=== PATIENT | male | born 1975 | race Caucasian/White ===

== ENCOUNTER 2020-11-05 22:40 | Emergency (ER) | payer BC ==
[~2020-11-05] VITALS: Ht 193 cm; Wt 106.0 kg
[2020-11-05 23:12] VITALS: BP 101/63
[2020-11-06] MEDS ORDERED: ALBU8HFA PO (00:03)
[2020-11-06] MEDS ORDERED: ONDA4TAB12 PO (00:03)
[2020-11-06] MEDS ORDERED: ondansetron 4mg rapidly disintigrating tab PO ONE (00:05)
== END 2020-11-06 00:54 | disposition home or self-care (01) ==
LOC: ER 22:42
DX: U07.1 COVID-19 (principal); R11.0 Nausea; R53.83 Other fatigue; R05 Cough; R50.9 Fever, unspecified; R63.0 Anorexia; Z79.899 Other long term (current) drug therapy
CPT/HCPCS: 99283

== ENCOUNTER 2020-11-11 14:35 | Inpatient (IN) | payer BC ==
[~2020-11-11] VITALS: Ht 193 cm; Wt 106.8 kg
[~2020-11-11 14:35] MED LIST: ALBU8HFA PO; ONDA4TAB12 PO
[2020-11-11 15:23] LABS: BASOPHILS # (AUTO) 0.1 X10'3 (0-0.2); BASOPHILS % (AUTO) 0.6 % (0-1); EOSINOPHILS # (AUTO) 0.2 X10'3 (0-0.9); EOSINOPHILS % (AUTO) 1.9 % (0-6); HEMATOCRIT 48.9 % (42.0-52.0); HEMOGLOBIN 16.7 g/dl (14.0-17.9); LYMPHOCYTES # (AUTO) 0.9 X10'3 (1.1-4.8); MEAN CORPUSCULAR HEMOGLOBIN 32.5 PG (27.0-31.0); MEAN CORPUSCULAR HGB CONC 34.1 g/dL (33.0-36.5); MEAN CORPUSCULAR VOLUME 95.4 FL (78-98); MEAN PLATELET VOLUME 8.3 FL (7.4-10.4); MONOCYTES # (AUTO) 0.6 X10'3 (0-0.9); MONOCYTES % (AUTO) 6.8 % (2-12); NEUTROPHILS # (AUTO) 6.9 X10'3 (1.8-7.7); NEUTROPHILS % (AUTO) 80.7 % (42-75); PLATELET COUNT 236 X10'3 (140-440); RED BLOOD COUNT 5.12 X10'6 (4.70-6.10); RED CELL DISTRIBUTION WIDTH 13.2 % (11.5-14.5); WHITE BLOOD COUNT 8.6 X10'3 (4.5-11.0)
[2020-11-11 15:38] LABS: ALANINE AMINOTRANSFERASE 59 U/L (12-78); ALBUMIN 2.6 G/DL (3.4-5.0); ALBUMIN/GLOBULIN RATIO 0.5 (1.1-1.5); ALKALINE PHOSPHATASE 82 IU/L (46-116); ANION GAP 11 (8-16); ASPARTATE AMINO TRANSFERASE 44 U/L (10-37); BILIRUBIN,TOTAL 0.6 MG/DL (0.1-1.0); BLOOD UREA NITROGEN 12 MG/DL (7-18); BUN/CREATININE RATIO 10.1 (5.4-32.0); C-REACTIVE PROTEIN 8.21 MG/DL (0.0-0.5); CALCIUM 8.5 MG/DL (8.5-10.1); CHLORIDE 98 MMOL/L (99-107); CREATININE 1.19 MG/DL (0.60-1.10); GLUCOSE 98 MG/DL (70-104); LACTATE DEHYDROGENASE 871 U/L (85-227); POTASSIUM 4.3 MMOL/L (3.5-5.1); SODIUM 138 MMOL/L (135-145); TOTAL CARBON DIOXIDE 29.1 MMOL/L (24-32); TOTAL PROTEIN 7.5 G/DL (6.4-8.2); eGFR 66 ML/MIN
[2020-11-11 15:51] LABS: D-DIMER > 35.20 MG/L FEU (0-0.50)
[2020-11-11] MEDS ORDERED: dexamethasone 4mg tablet PO ONE (16:35)
[2020-11-11] MEDS ORDERED: DEXAMETHASONE 6 MG TABLET PO ONE (16:40)
[2020-11-11] MEDS ORDERED: enoxaparin 100mg/ml syringe SUBCUT ONE (16:45)
[2020-11-11] MEDS ORDERED: iohexol 350MG/ML 100ml bottle IV ONE (17:01)
[2020-11-11] MEDS ORDERED: mag hydrox/Alum hydrox/simeth 30ml oral suspension PO PRN (17:25)
[2020-11-11] MEDS ORDERED: ondansetron/PF 4mg/2ml inj IV PRN (17:25)
[2020-11-11] MEDS ORDERED: magnesium hydroxide 30ml (MOM) UD suspension PO PRN (17:25)
[2020-11-11] MEDS ORDERED: BUPR-317 PO (17:41)
[2020-11-11] MEDS ORDERED: ONDA4TAB6 PO (17:41)
[2020-11-11] MEDS ORDERED: VALA100031 PO (17:41)
[2020-11-11] MEDS ORDERED: ALBU8.5H17 IH (17:41)
[2020-11-11] MEDS ORDERED: ALBUTEROL INHALER 1 PUFF/90 MCG INHALER IH PRN (17:55)
[2020-11-11] MEDS ORDERED: non-formulary drug (Ondansetron Hcl (Zofran) 1 TAB) PO PRN (17:55)
[2020-11-11] MEDS ORDERED: LIOT0.5P PO (17:59)
--- NOTE | 2020-11-11 18:35 | NUR ---
PT SITTING ON BED. INTERMITTENT DRY COUGH. SPEAKS IN FULL SENTENCES. A&0X4.
[2020-11-11] MEDS: dexamethasone inj 6 MG in normal saline 50ml IV soln 50 ML IV SCH (19:04)
[2020-11-11] MEDS: docusate sod 100mg capsule PO SCH (20:00)
[2020-11-11] MEDS: normal saline 1000ml 1,000 ML IV SCH (20:09)
[2020-11-11] MEDS: enoxaparin 100mg/ml syringe SQ SCH (20:11)
[2020-11-11] MEDS: acetaminophen 325mg tablet PO PRN (23:04)
[2020-11-12 02:58] LABS: BASOPHILS % (AUTO) 0.2 % (0-1); EOSINOPHILS % (AUTO) 0.1 % (0-6); HEMATOCRIT 45.2 % (42.0-52.0); LYMPHOCYTES # (AUTO) 0.5 X10'3 (1.1-4.8); LYMPHOCYTES % (AUTO) 10.6 % (21-51); MEAN CORPUSCULAR HGB CONC 33.1 g/dL (33.0-36.5); MEAN CORPUSCULAR VOLUME 96.7 FL (78-98); MEAN PLATELET VOLUME 8.2 FL (7.4-10.4); MONOCYTES # (AUTO) 0.2 X10'3 (0-0.9); MONOCYTES % (AUTO) 5.1 % (2-12); NEUTROPHILS # (AUTO) 3.6 X10'3 (1.8-7.7); PLATELET COUNT 234 X10'3 (140-440); RED BLOOD COUNT 4.67 X10'6 (4.70-6.10); RED CELL DISTRIBUTION WIDTH 13.2 % (11.5-14.5); WHITE BLOOD COUNT 4.3 X10'3 (4.5-11.0)
[2020-11-12 03:12] LABS: ANION GAP 9 (8-16); BLOOD UREA NITROGEN 13 MG/DL (7-18); CALCIUM 7.1 MG/DL (8.5-10.1); CHLORIDE 104 MMOL/L (99-107); CREATININE 0.93 MG/DL (0.60-1.10); GLUCOSE 128 MG/DL (70-104); POTASSIUM 4.9 MMOL/L (3.5-5.1); SODIUM 138 MMOL/L (135-145); TOTAL CARBON DIOXIDE 25.1 MMOL/L (24-32); eGFR 88 ML/MIN
[2020-11-12] MEDS: valacyclovir 500mg tablet PO SCH (07:35)
[2020-11-12] MEDS: docusate sod 100mg capsule PO SCH ×2 (07:35→18:16)
[2020-11-12] MEDS: buPROPion SR 150mg tablet PO SCH (07:35)
[2020-11-12] MEDS: acetaminophen 325mg tablet PO PRN ×3 (07:35→20:08)
[2020-11-12] MEDS: enoxaparin 100mg/ml syringe SQ SCH ×2 (07:36→20:08)
[2020-11-12] MEDS: dexamethasone inj 6 MG in normal saline 50ml IV soln 50 ML IV SCH ×2 (07:36→19:41)
[2020-11-12] MEDS ORDERED: REMDESIVIR INJ 200 MG in normal saline 100ml IV soln 60 ML IV ONE (09:55)
--- NOTE | 2020-11-12 14:05 | NUR ---
relieving RN for break, pt is resting quietly on gurney, resp even and unlabored, pt asking for tylenol for chronic back pain, refilled his water pitcher, gave him apple juice and orange juice, emptied urinal of 1000ml of dark yellow urine
[2020-11-12 21:55] VITALS: BP 138/68
--- NOTE | 2020-11-12 21:55 | NUR ---
PATIENT ADMITTED TO COVID ROOM 7B FROM ER FOR COVID + PE AND PNEUMONIA. PLACED COMFORTABLE IN BED. VITAL SIGNS TAKEN AND RECORDED.
[2020-11-13 04:00] VITALS: BP 113/79
[2020-11-13] MEDS: normal saline 1000ml 1,000 ML IV SCH (06:03)
[2020-11-13] MEDS: acetaminophen 325mg tablet PO PRN ×2 (06:12→19:24)
--- NOTE | 2020-11-13 06:30 | NUR ---
Problems reprioritized. Patient report given, questions answered & plan of care reviewed with AM RN.
[2020-11-13] MEDS: benzonatate 100mg capsule PO PRN ×2 (08:07→19:24)
[2020-11-13] MEDS: docusate sod 100mg capsule PO SCH ×2 (08:07→19:25)
[2020-11-13] MEDS: buPROPion SR 150mg tablet PO SCH (08:07)
[2020-11-13] MEDS: valacyclovir 500mg tablet PO SCH (08:07)
[2020-11-13] MEDS: REMDESIVIR INJ 100 MG in normal saline 100ml IV soln 80 ML IV SCH (08:08)
[2020-11-13] MEDS: dexamethasone inj 6 MG in normal saline 50ml IV soln 50 ML IV SCH ×2 (08:08→20:57)
[2020-11-13] MEDS: enoxaparin 100mg/ml syringe SQ SCH ×2 (08:09→19:24)
[2020-11-13 08:15] VITALS: BP 102/64
[2020-11-13 09:06] LABS: BASOPHILS % (AUTO) 0.3 % (0-1); EOSINOPHILS # (AUTO) 0.1 X10'3 (0-0.9); EOSINOPHILS % (AUTO) 0.9 % (0-6); HEMATOCRIT 47.4 % (42.0-52.0); HEMOGLOBIN 15.9 g/dl (14.0-17.9); LYMPHOCYTES # (AUTO) 1.6 X10'3 (1.1-4.8); LYMPHOCYTES % (AUTO) 19.9 % (21-51); MEAN CORPUSCULAR HEMOGLOBIN 32.3 PG (27.0-31.0); MEAN CORPUSCULAR HGB CONC 33.5 g/dL (33.0-36.5); MEAN CORPUSCULAR VOLUME 96.4 FL (78-98); MEAN PLATELET VOLUME 8.4 FL (7.4-10.4); MONOCYTES # (AUTO) 0.6 X10'3 (0-0.9); MONOCYTES % (AUTO) 8.1 % (2-12); NEUTROPHILS # (AUTO) 5.7 X10'3 (1.8-7.7); NEUTROPHILS % (AUTO) 70.8 % (42-75); PLATELET COUNT 274 X10'3 (140-440); RED BLOOD COUNT 4.91 X10'6 (4.70-6.10); RED CELL DISTRIBUTION WIDTH 13.4 % (11.5-14.5)
[2020-11-13 09:37] LABS: ALBUMIN 2.4 G/DL (3.4-5.0); ANION GAP 8 (8-16); BLOOD UREA NITROGEN 15 MG/DL (7-18); BUN/CREATININE RATIO 13.9 (5.4-32.0); C-REACTIVE PROTEIN 2.26 MG/DL (0.0-0.5); CALCIUM 8.3 MG/DL (8.5-10.1); CHLORIDE 105 MMOL/L (99-107); CREATININE 1.08 MG/DL (0.60-1.10); GLUCOSE 96 MG/DL (70-104); POTASSIUM 4.8 MMOL/L (3.5-5.1); SODIUM 142 MMOL/L (135-145); TOTAL CARBON DIOXIDE 29.4 MMOL/L (24-32); eGFR 74 ML/MIN
[2020-11-13 09:55] LABS: D-DIMER 12.37 MG/L FEU (0-0.50)
--- NOTE | 2020-11-13 18:58 | NUR ---
Patient in room COVID 07. I have received report from Griselda WEST and had the opportunity to ask questions and assume patient care.
[2020-11-13 19:00] VITALS: BP 108/60
[2020-11-13 23:00] VITALS: BP 100/61
[2020-11-14 03:00] VITALS: BP 103/60
--- NOTE | 2020-11-14 06:35 | NUR ---
Problems reprioritized. Patient report given, questions answered & plan of care reviewed with Griselda WEST.
[2020-11-14] MEDS ORDERED: liothyronine sod 5mcg tablet PO SCH (08:00)
[2020-11-14] MEDS: REMDESIVIR INJ 100 MG in normal saline 100ml IV soln 80 ML IV SCH (08:27)
[2020-11-14] MEDS: docusate sod 100mg capsule PO SCH (08:29)
[2020-11-14] MEDS: benzonatate 100mg capsule PO PRN (08:29)
[2020-11-14] MEDS: buPROPion SR 150mg tablet PO SCH (08:29)
[2020-11-14] MEDS: valacyclovir 500mg tablet PO SCH (08:30)
[2020-11-14] MEDS: dexamethasone inj 6 MG in normal saline 50ml IV soln 50 ML IV SCH (08:30)
[2020-11-14] MEDS: enoxaparin 100mg/ml syringe SQ SCH (08:30)
[2020-11-14 08:55] LABS: BASOPHILS % (AUTO) 0.6 % (0-1); EOSINOPHILS % (AUTO) 0.1 % (0-6); HEMATOCRIT 47.9 % (42.0-52.0); HEMOGLOBIN 16.1 g/dl (14.0-17.9); LYMPHOCYTES # (AUTO) 1.1 X10'3 (1.1-4.8); LYMPHOCYTES % (AUTO) 13.4 % (21-51); MEAN CORPUSCULAR HEMOGLOBIN 32.4 PG (27.0-31.0); MEAN CORPUSCULAR HGB CONC 33.6 g/dL (33.0-36.5); MEAN CORPUSCULAR VOLUME 96.4 FL (78-98); MEAN PLATELET VOLUME 8.1 FL (7.4-10.4); MONOCYTES # (AUTO) 0.6 X10'3 (0-0.9); MONOCYTES % (AUTO) 6.5 % (2-12); NEUTROPHILS # (AUTO) 6.8 X10'3 (1.8-7.7); NEUTROPHILS % (AUTO) 79.4 % (42-75); PLATELET COUNT 278 X10'3 (140-440); RED BLOOD COUNT 4.98 X10'6 (4.70-6.10); RED CELL DISTRIBUTION WIDTH 13.3 % (11.5-14.5); WHITE BLOOD COUNT 8.6 X10'3 (4.5-11.0)
[2020-11-14 09:17] LABS: ALBUMIN 2.4 G/DL (3.4-5.0); ANION GAP 8 (8-16); BLOOD UREA NITROGEN 13 MG/DL (7-18); BUN/CREATININE RATIO 12.6 (5.4-32.0); C-REACTIVE PROTEIN 1.08 MG/DL (0.0-0.5); CALCIUM 8.3 MG/DL (8.5-10.1); CHLORIDE 104 MMOL/L (99-107); CREATININE 1.03 MG/DL (0.60-1.10); GLUCOSE 125 MG/DL (70-104); POTASSIUM 4.7 MMOL/L (3.5-5.1); SODIUM 142 MMOL/L (135-145); TOTAL CARBON DIOXIDE 29.7 MMOL/L (24-32); eGFR 78 ML/MIN
[2020-11-14 09:27] LABS: D-DIMER 14.98 MG/L FEU (0-0.50)
[2020-11-14 10:00] VITALS: BP 106/66
[2020-11-14] MEDS ORDERED: APIX5TAB3 PO (10:47)
[2020-11-14] MEDS ORDERED: DEC4T PO (10:49)
--- NOTE | 2020-11-14 10:59 | NUR ---
O2 Sat at rest on room air:_91__% If below 89%: Recovery O2 Sat at rest on ___LPM:___%:___% via (mask/nasal cannula, etc..) No further documentation is necessary. If O2 Sat did not drop below 89% on room air,ambulate patient on room air. O2 Sat while ambulating on room air:__86_% Recovery O2 Sat while ambulating on __3_LPM:_94__% No further documentation is necessary. If patient does not drop below 89% while ambulating, he/she does not qualify for home O2.
== END 2020-11-14 14:00 | disposition home or self-care (01) | DRG 177 ==
LOC: ER 14:35 → ED HOLD 17:27 → COVID IP 11-12 21:50
PROVIDERS: ADMIT Family Medicine; ATTEND Family Medicine
PROC: B32T1ZZ Computerized Tomography (CT Scan) of Left Pulmonary Artery using Low Osmolar Contrast (ICD-10-PCS; 2020-11-11)
PROC: B3201ZZ Computerized Tomography (CT Scan) of Thoracic Aorta using Low Osmolar Contrast (ICD-10-PCS; 2020-11-11)
PROC: B32S1ZZ Computerized Tomography (CT Scan) of Right Pulmonary Artery using Low Osmolar Contrast (ICD-10-PCS; 2020-11-11)
PROC: XW033E5 Introduction of Remdesivir Anti-infective into Peripheral Vein, Percutaneous Approach, New Technology Group 5 (ICD-10-PCS; principal; 2020-11-12)
DX: U07.1 COVID-19 (principal); I26.99 Other pulmonary embolism without acute cor pulmonale; J12.82 Pneumonia due to coronavirus disease 2019; J96.01 Acute respiratory failure with hypoxia; D68.59 Other primary thrombophilia; I82.433 Acute embolism and thrombosis of popliteal vein, bilateral; E03.9 Hypothyroidism, unspecified; F17.220 Nicotine dependence, chewing tobacco, uncomplicated; F32.9 Major depressive disorder, single episode, unspecified; F41.9 Anxiety disorder, unspecified
CPT/HCPCS: 36415; 71045; 71275; 80048; 80053; 83615; 84145; 85025; 85379; 86140; 87081; 93005; 93970; 94640; 94760; 99285; G0378; J1100; J1650; J7030; J8540; Q9967